=== PATIENT | male | born 1985 | race Caucasian/White ===

== ENCOUNTER 2017-08-01 20:30 | Emergency (ER) | payer OTHER ==
[~2017-08-01] VITALS: Ht 177.8 cm; Wt 81.7 kg
[2017-08-01] MEDS ORDERED: CYCL10 PO (23:03)
== END 2017-08-01 23:12 | disposition home or self-care (01) ==
LOC: ER 20:30
DX: S16.1XXA Strain of muscle, fascia and tendon at neck level, initial encounter (principal); W19.XXXA Unspecified fall, initial encounter; Y93.02 Activity, running
CPT/HCPCS: 72040; 72125; 96372; 99284; J1885; L0160